=== PATIENT | male | born 1960 | race Caucasian/White ===

== ENCOUNTER 2018-04-03 21:52 | Emergency (ER) | payer BC ==
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
[2018-04-04 02:21] VITALS: BP 144/97; TEMP 98.8; O2SAT 99
--- NOTE | 2018-04-04 08:12 | RAD REPORT ---
EXAM DESCRIPTION: RAD - Hand Left 3 View - 04/03/2018 10:56 pm CLINICAL HISTORY: PAIN Trauma, pain COMPARISON: No comparisons FINDINGS: Dislocation is seen of the left fourth finger DIP joint. No acute fracture is evident.
--- NOTE | 2018-04-04 08:15 | RAD REPORT ---
EXAM DESCRIPTION: RAD - Hand Left 3 View - 04/03/2018 11:54 pm CLINICAL HISTORY: post reduction Finger dislocation COMPARISON: Hand Left 3 View dated 04/03/2018 FINDINGS: Previously noted dislocation of the left hand fourth finger DIP joint has largely been red uced. No fracture seen.
== END 2018-04-04 00:12 | disposition home or self-care (01) ==
LOC: ER 21:52
PROC: 0RSXXZZ Reposition Left Finger Phalangeal Joint, External Approach (ICD-10-PCS; principal; 2018-04-03)
DX: S63.295A Dislocation of distal interphalangeal joint of left ring finger, initial encounter (principal); W23.0XXA Caught, crushed, jammed, or pinched between moving objects, initial encounter
CPT/HCPCS: 99283